=== PATIENT | male | born 1970 | race Caucasian/White ===

== ENCOUNTER 2021-09-05 13:45 | Emergency (ER) | payer BC ==
[2021-09-05] MEDS ORDERED: CASIRIVIMAB (REGN10933) (EUA) 600 MG, IMDEVIMAB (REGN10987) (EUA) 600 MG in SODIUM CHLO... IVPB ONE (15:00)
[2021-09-05] MEDS ORDERED: SODIUM CHLORIDE 0.9% 50 ML IVPB ONE (15:30)
--- NOTE | 2021-09-05 16:25 | ED ---
General Adult HPI - General Chief complaint: Upper Respiratory Infection Stated complaint: Covid+/BAM Time Seen by Provider: 09/05/21 14:47 Source: patient, RN notes reviewed Mode of arrival: ambulatory Limitations: no limitations - History of Present Illness Initial comments: 50-year-old male presents to the emergency room for a chief complaint of COVID- 19 infusion. Patient states that he developed symptoms of COVID-19 about 7 days ago and tested positive at that time. Patient states he hasn't been getting worse but just hasn't been getting better. States she has body aches and a cough. He denies chest pain or shortness of breath. Denies congestion or fevers.Patient has no other complaints at this time including shortness of breath, chest pain, abdominal pain, nausea or vomiting, headache, or visual changes. - Related Data Home Medications Medication Instructions Recorded Confirmed No Known Home Medications 09/05/21 09/05/21 Allergies Allergy/AdvReac Type Severity Reaction Status Date / Time ibuprofen Allergy Rash/Hives Verified 09/05/21 16:03 Penicillins Allergy Rash/Hives Verified 09/05/21 16:03 Review of Systems ROS Statement: Those systems with pertinent positive or pertinent negative responses have been documented in the HPI. ROS Other: All systems not noted in ROS Statement are negative. Past Medical History Past Medical History: No Reported History Additional Past Medical History / Comment(s): Covid 2020 History of Any Multi-Drug Resistant Organisms: None Reported Past Surgical History: Tonsillectomy Past Psychological History: No Psychological Hx Reported Smoking Status: Never smoker Past Alcohol Use History: Occasional Past Drug Use History: None Reported General Exam Limitations: no limitations General appearance: alert, in no apparent distress Head exam: Present: atraumatic Eye exam: Present: normal appearance, PERRL, EOMI. Absent: scleral icterus, conjunctival injection ENT exam: Present: normal exam, mucous membranes moist Neck exam: Present: normal inspection, full ROM. Absent: tenderness Respiratory exam: Present: normal lung sounds bilaterally. Absent: respiratory distress, wheezes Cardiovascular Exam: Present: regular rate, normal rhythm, normal heart sounds GI/Abdominal exam: Present: soft, normal bowel sounds. Absent: distended, tenderness Course Vital Signs 09/05/21 09/05/21 09/05/21 13:57 15:02 15:30 Temperature 98.5 F Pulse Rate 89 92 Respiratory 18 18 16 Rate Blood Pressure 161/93 158/90 O2 Sat by Pulse 96 95 Oximetry Medical Decision Making - Medical Decision Making Vitals are stable. Patient is well appearing. Patient requesting COVID-19 antibody infusion. This was given to him. He was monitored for an hour afterwards in the emergency department. Patient to be discharged home to follow up with primary care. Discussed strict return parameters especially for shortness of breath. Disposition Clinical Impression: COVID-19 Disposition: HOME SELF-CARE Condition: Good Instructions (If sedation given, give patient instructions): Coronavirus Disease 2019 (COVID-19) Additional Instructions: Please follow-up with your doctor in one to 2 days. Return to the emergency room for any worsening symptoms. Is patient prescribed a controlled substance at d/c from ED?: No Referrals: Nonstaff,Physician [Primary Care Provider] - 1-2 days Time of Disposition: 16:24
[2021-09-05 16:58] VITALS: BP 145/98; PULSE 81; RESP 18; TEMP 98.1
== END 2021-09-05 16:58 | disposition home or self-care (01) ==
LOC: EC 13:45
DX: U07.1 COVID-19 (principal); Z86.16 Personal history of COVID-19; Z88.0 Allergy status to penicillin; Z88.6 Allergy status to analgesic agent
CPT/HCPCS: 99283; Q0244